=== PATIENT | female | born 1950 | race Caucasian/White ===

== ENCOUNTER → 2018-10-04 | Outpatient (CLI) | payer MEDICARE | END | disposition home or self-care (01) | LOC: LAB SHORT 07:47 → PLD 07:47 | DX: D22.5 Melanocytic nevi of trunk (principal); D22.62 Melanocytic nevi of left upper limb, including shoulder | CPT/HCPCS: 88305 ==

== ENCOUNTER → 2020-12-09 | Outpatient (CLI) | payer MEDICARE ==
[2020-12-09 13:20] LABS: BASOPHILS ABSOLUTE AUTO 0.04 K/mm3 (0.00-0.23); BASOPHILS PERCENT AUTO 1 % (0-2); EOSINOPHILS ABSOLUTE AUTO 0.15 K/mm3 (0.00-0.68); EOSINOPHILS PERCENT AUTO 2 % (0-6); Hematocrit 45.6 % (33.0-51.0); Hemoglobin 14.9 g/dL (11.5-16.0); IMMATURE GRAN ABSOLUTE AUTO 0.01 K/mm3 (0.00-0.10); IMMATURE GRAN PERCENT AUTO 0 % (0-1); LYMPHOCYTES ABSOLUTE AUTO 2.84 K/mm3 (0.84-5.20); LYMPHOCYTES PERCENT AUTO 44 % (21-46); MONOCYTES ABSOLUTE AUTO 0.62 K/mm3 (0.16-1.47); MONOCYTES PERCENT AUTO 10 % (4-13); Mean Corpuscular HGB 30.4 pg (26.0-34.0); Mean Corpuscular HGB Conc 32.7 g/dL (31.5-36.5); Mean Corpuscular Volume 93 fL (80-100); Mean Platelet Volume 9.9 fL (9.1-12.4); NEUTROPHILS ABSOLUTE AUTO 2.81 K/mm3 (1.96-9.15); NEUTROPHILS PERCENT AUTO 43 % (41-73); Platelet Count 361 K/mm3 (150-400); RDW Coefficient Variation 13.5 % (11.7-14.2); White Blood Cell Count 6.47 K/mm3 (4.00-11.30)
[2020-12-09 14:43] LABS: Alanine Aminotransfer (ALT/SGP 20 U/L (12-78); Albumin, Blood 3.7 g/dL (3.4-5.0); Albumin/Globulin Ratio 1.2 (0.8-1.8); Alk Phos 88 U/L (50-136); Anion Gap 6 mmol/L (6-16); Aspartate Aminotrans (AST/SGOT 12 U/L (12-37); Bilirubin, Total 0.5 mg/dL (0.1-1.0); Blood Urea Nitrogen 17 mg/dL (8-24); Bun/Creatinine Ratio 19.3 (12.0-20.0); CHOL/HDL RATIO 3.2; CO2, Blood 27 mmol/L (21-32); Calcium, Blood 9.3 mg/dL (8.5-10.1); Chloride, Blood 111 mmol/L (98-108); Cholesterol 169 mg/dL (50-200); Creatinine, Blood 0.88 mg/dL (0.40-1.00); Globulin, Blood 3.1 g/dL (2.2-4.0); Glomerular Filtration Rate >60 (60-); Glucose, Blood 101 mg/dL (70-99); HDL Cholesterol 53 mg/dL (>39); LDL/HDL RATIO 1.7; Low Density Lipoprotein Chol 91 mg/dL (0-110); Sodium, Blood 144 mmol/L (136-145); Thyroxine (T4) 8.1 ug/dL (4.8-13.9); Total Protein, Blood 6.8 g/dL (6.4-8.2); Triglycerides 127 mg/dL (30-160); Very Low Density Lipoprot Chol 25 mg/dL (6-32)
== END | disposition home or self-care (01) ==
LOC: LAB SHORT 09:35 → PLD 09:35
PROVIDERS: Family Medicine
DX: E78.2 Mixed hyperlipidemia (principal); I10 Essential (primary) hypertension; E03.9 Hypothyroidism, unspecified
CPT/HCPCS: 80053; 80061; 84436; 84443; 85025

== ENCOUNTER → 2024-01-20 | Outpatient (CLI) | payer MEDICARE | END | disposition home or self-care (01) | LOC: LAB 10:00 → LAB SHORT 10:00 | DX: N39.0 Urinary tract infection, site not specified (principal) ==

== ENCOUNTER → 2024-07-05 | Outpatient (CLI) | payer MEDICARE ==
[~2024-07-05] MED LIST: ATOR10; ERGO400
== END | disposition home or self-care (01) ==
LOC: LAB SHORT 12:02 → LAB 12:02
DX: N39.0 Urinary tract infection, site not specified (principal)
CPT/HCPCS: 87077; 87086; 87186

== ENCOUNTER 2024-12-03 07:43 | Day surgery (SDC) | payer MEDICARE ==
[2024-12-03] VITALS (14 sets, daily range): BP systolic 81–117; BP diastolic 54–72
[~2024-12-03] VITALS: Ht 167.6 cm; Wt 78.7 kg
[2024-12-03] MEDS ORDERED: OxyCODONE HCL 10 MG TABCR PO SCH (07:45)
[2024-12-03] MEDS ORDERED: CeFAZolin Sodium 2,000 MG in NS 100 ML IV SCH ×2 (07:45→18:00)
[2024-12-03] MEDS ORDERED: Tranexamic Acid 100 ML IV SCH (07:45)
[2024-12-03] MEDS ORDERED: Acetaminophen 500 MG Tab PO SCH ×2 (07:45→16:00)
[2024-12-03] MEDS ORDERED: Lactated Ringer's 1,000 ML IV SCH ×2 (07:45→11:25)
[2024-12-03] MEDS ORDERED: Chlorhexidine Mouth Care 15 ML UDC MT SCH (07:45)
[2024-12-03] MEDS ORDERED: Ropivacaine 0.5% HCl/Pf 123.125 MG,EPINEPHrine HCL 0.25 MG,Ketorolac Tromethamine 15 MG... INFIL SCH (08:50)
[2024-12-03] MEDS ORDERED: FentaNYL Citrate 50 MCG/ML 2 ML Injection ONE ×2 (09:31→11:01)
[2024-12-03] MEDS ORDERED: Midazolam HCl 1MG / ML 2ML Vial ONE (09:31)
[2024-12-03] MEDS ORDERED: propofoL 20 ML IV ONE ×3 (09:31→11:00)
[2024-12-03] MEDS ORDERED: Phenylephrine HCl 100 MCG/ML-NS 10MLSYR (1MG/10ML) ONE ×2 (10:28→11:52)
[2024-12-03] MEDS ORDERED: Albuterol 2.5 MG/3 ML VIAL INH PRN (10:35)
[2024-12-03] MEDS ORDERED: FentaNYL Citrate 50 MCG/ML 2 ML Injection IV PRN ×2 (10:35→10:40)
[2024-12-03] MEDS ORDERED: HYDROmorphone HCl 0.5 MG/0.5 ML SYR IV PRN ×3 (10:35→11:20)
[2024-12-03] MEDS ORDERED: Ondansetron HCl 2 MG / ML 2ML Vial IV PRN ×2 (10:35→11:10)
[2024-12-03] MEDS ORDERED: ePHEDrine Sulfate 50 MG/ML 1ML Injection IV PRN (10:40)
[2024-12-03] MEDS ORDERED: Lidocaine HCl 2% Jelly 120MG/6ML SYR (20MG PER ML) ONE (10:41)
[2024-12-03] MEDS ORDERED: ePHEDrine Sulfate 50 MG/ML 1ML Injection ONE (10:42)
[2024-12-03] MEDS ORDERED: Prochlorperazine Edisylate 10 mg Vial IV PRN (11:10)
[2024-12-03] MEDS ORDERED: OxyCODONE HCL 5 MG TAB PO PRN ×2 (11:10)
[2024-12-03] MEDS ORDERED: DiphenhydrAMINE HCL 25 MG Cap PO PRN (11:15)
[2024-12-03] MEDS ORDERED: FLU VACC TS2024-25(6MOS UP)/PF 45 MCG/0.5 ML SYRINGE IM PRN (11:15)
[2024-12-03] MEDS ORDERED: Bisacodyl 10 MG Supp PR PRN (11:15)
[2024-12-03] MEDS ORDERED: Magnesium Hydroxide Conc 10 ML UDC PO PRN (11:20)
[2024-12-03] MEDS ORDERED: Promethazine HCl 25 MG Tab PO PRN (11:20)
[2024-12-03] MEDS ORDERED: Metoclopramide HCl 5MG / ML 2ML Vial IV PRN (11:20)
[2024-12-03] MEDS ORDERED: Ketorolac Tromethamine 15mg Vial IV SCH (18:00)
[2024-12-03] MEDS ORDERED: ACET500 PO (18:32)
[2024-12-03] MEDS ORDERED: ASPI81CH PO (18:33)
[2024-12-03] MEDS ORDERED: OXYC5 PO (18:33)
--- NOTE | 2024-12-03 19:40 | NUR ---
DISCHARGE PAIN WELL CONTROLLED. EATING, DRINKING, & VOIDING WELL. AMBULATED IN HALLWAY. WISHES TO DC HOME. POLAR PACK SENT w/ PT. ESCORTED OUT VIA W/C.
[2024-12-03] MEDS ORDERED: Docusate Sodium 100 MG Cap PO SCH (21:00)
[2024-12-04] MEDS ORDERED: Aspirin 81 MG Chew PO SCH (09:00)
== END 2024-12-03 19:30 | disposition home or self-care (01) ==
LOC: ORSCMMR 07:43 → ORD 11:30 → SURS 12:51 → ORSCMMR 19:30
PROVIDERS: Orthopaedic Surgery
PROC: 0SRB0JA Replacement of Left Hip Joint with Synthetic Substitute, Uncemented, Open Approach (ICD-10-PCS; principal; 2024-12-03 09:30)
DX: M16.12 Unilateral primary osteoarthritis, left hip (principal)
CPT/HCPCS: 72170; A9270; C1713; C1776; J0171; J0690; J0735; J1885; J2250; J2371; J2405; J2704; J2795; J3010; J7120

== ENCOUNTER → 2025-03-05 | Outpatient (CLI) | payer MEDICARE ==
[~2025-03-05] MED LIST changes: +ACET500 PO; +ASPI81CH PO; +OXYC5 PO
== END ==
LOC: LAB 16:19 → LAB SHORT 16:19
DX: N39.0 Urinary tract infection, site not specified (principal); R31.9 Hematuria, unspecified
CPT/HCPCS: 87086